=== PATIENT | male | born 2000 | race Caucasian/White ===

== ENCOUNTER → 2021-09-17 | Outpatient (CLI) | payer BC ==
--- NOTE | 2021-09-17 13:02 | Diagnostic Imaging Report ---
INDICATION: Right hip pain. FINDINGS: AP pelvis. SI joints and pubic symphysis are in good alignment. Femoral heads are normal articulation bilaterally with normal-appearing acetabula. Joint spaces are well maintained. There are no fractures. No hypertrophic bony changes. No evidence of osteonecrosis. IMPRESSION: Normal AP pelvis. Dictated by: Dictated on workstation # [id number]
--- NOTE | 2021-09-17 13:12 | Diagnostic Imaging Report ---
EXAMINATION: Right hip unilateral 2 or 3 views (w/pelvis when done) HISTORY: RIGHT HIP PAIN COMPARISON: None available. FINDINGS: There is no evidence for acute fracture or dislocation. There is an osseous protuberance at the anterior femoral head and neck junction which can be seen in patients with impingement type symptoms. There is mild sclerosis at the pubic symphysis perhaps due to a history of pubic symphysitis. IMPRESSION: 1. Chronic findings with no acute osseous abnormality. Dictated by: Dictated on workstation # [id number]
== END ==
LOC: RAD FS 10:31
PROVIDERS: ATTEND Nurse Practitioner
DX: M25.551 Pain in right hip (principal)
CPT/HCPCS: 72170; 73502